=== PATIENT | female | born 1995 | race African-American/Black ===

== ENCOUNTER 2017-01-03 15:03 | Emergency (ER) | payer MEDICAID, OTHER ==
[2017-01-03 15:10] VITALS: BP 144/94
[2017-01-03] MEDS ORDERED: DEXAMETHASONE SOD PHOSPHATE 10 MG/ML VIAL IM ONE (15:19)
[2017-01-03] MEDS ORDERED: KETOROLAC TROMETHAMINE 60 MG/2 ML VIAL IM ONE ×2 (15:19→15:27)
[2017-01-03] MEDS ORDERED: CLINDAMYCIN PHOSPHATE 150 MG/ML VIAL IM ONE (15:20)
[2017-01-03] MEDS ORDERED: DEXAMETHASONE SOD PHOSPHATE 10 MG/ML VIAL ONE (15:27)
--- NOTE | 2017-01-03 16:00 | ERNOTE ---
ENT HPI Presenting Symptoms: other - sore throat Time Seen by Provider: 01/03/17 15:12 Source: patient Exam Limitations: no limitations - Immun/Allergies/Home Medications Immunizations: IMMUNIZATION HX Immunizations Up to Date Yes Allergies/Adverse Reactions: Allergies Allergy/AdvReac Type Severity Reaction Status Date / Time No Known Allergies Allergy Verified 01/03/17 15:10 Home Medications: HOME MEDICATIONS Ibuprofen [Motrin] 600 mg PO Q6H PRN #60 tablet 04/05/14 [Last Taken Unknown] Clarithromycin [Biaxin] 500 mg PO BID #20 tablet 01/03/17 [Last Taken Unknown] - History of Present Illness Narrative: Detailed female presents to the emergency room for sore throat 3 days. States it hurts to swallow. Severity: Present: mild ENT Location: Present: throat Prearrival Treatment: Present: no prearrival treatment Modifying Factors - Improves: Reports: nothing Modifying Factors - Worsens: Reports: coughing Associated Symptoms - ENT: Reports: fever, poor fluid intake, voice change, sore throat. Denies: drooling, nasal congestion/drainage, facial pain/swelling , jaw swelling, ear drainage, headache, foreign body, trauma Review of Systems - Review of Systems Constitutional: Present: See HPI EYE: Present: no symptoms reported ENT: Present: See HPI Respiratory: Present: no symptoms reported. Absent: shortness of breath, cough Cardiology: Present: no symptoms reported Gastrointestinal/Abdominal: Present: no symptoms reported Genitourinary: Present: no symptoms reported Musculoskeletal: Present: no symptoms reported Skin: Present: no symptoms reported Neurological: Present: no symptoms reported Endocrine: Present: no symptoms reported Hematologic/Lymphatic: Present: no symptoms reported Psych: Present: no symptoms reported All Other Systems: All systems neg except as marked - Patient's Past Medical History Patient History - Medical: No pertinent hx Patient History - Cardiac/Respiratory: No pertinent hx Patient History - Cancer: No Hx of Cancer Patient History - Surgical Procedures: No surgical history Patient History - Other: None LMP (females 10-50): 3 weeks - Social History Living Situations: alone Psych History: No pertinent hx Smoking Status: Never smoker Alcohol Use: none - Immunizations Immunizations Up to Date: Yes Physical Exam - Physical Exam Narrative: Patient has 3+ tonsils with exudate and mild erythema noted to the back of her throat. General Appearance: Present: wd/wn, alert, no apparent distress Eye Exam: Normal inspection: bilateral Ears, Nose, Throat: Present: normal except -, pharyngeal erythema, tonsillar exudate, tonsillar swelling Neck: Present: nontender, full range of motion, lymphadenopathy (R), lymphadenopathy (L). Absent: thyromegaly Respiratory: Present: no respiratory distress, normal breath sounds, no accessory muscle use, chest nontender, lungs clear. Absent: respiratory distress, accessory muscle use, crackles, rales, rhonchi, stridor, wheezing Cardiovascular/Chest: Present: regular rate, rhythm, no murmur, normal peripheral pulses Gastrointestinal/Abdominal: Present: normal bowel sounds, nontender, nondistended, soft Back Exam: Present: normal inspection, normal range of motion, no CVA tenderness , no vertebral tenderness Extremity Exam: Present: normal inspection, non-tender, normal range of motion, no edema Neurological Exam: Present: alert, oriented, normal mood/affect, no motor/ sensory deficits Skin Exam: Present: normal color, warm/dry Lymphatic Exam: Present: no adenopathy ED Progress - Results and Orders Patient's Lab Results:: I have reviewed the patient's lab results. Results and Orders: negative strep - Vital Signs Vital Signs: Vital Signs 01/03/17 15:04 Temperature 37.4 C Pulse Rate 104 H Respiratory 18 Rate Blood Pressure 144/94 O2 Sat by Pulse 100 Oximetry - Progress/Reassessment Chief Complaint: Sore Throat Progress:: Improved Plan - Plan Plan: She feels better after medication. Patient educated on drinking cold foods and fluids to help with swelling and to return to the emergency room if swelling returns or she is unable to control pain at home with [id number] pain medication. Departure Clinical Impression: Tonsillitis with exudate - Departure Disposition: Home Follow Up Needed Condition: Stable Instructions: Tonsillitis, [id number] Additional Instructions: Patient continue any previous home medications. Take all antibiotics as prescribed. Return to the emergency rooms if symptoms persist swelling does not go down restart running a fever. Follow-up with her primary care in the next 2-3 days if symptoms do not subside or if needed Referrals: Deloris Glez ARNP [Primary Care Provider] - Prescriptions: Clarithromycin [Biaxin] 500 mg PO BID #20 tablet
== END 2017-01-03 16:03 | disposition home or self-care (01) ==
LOC: ER 15:03
DX: J03.90 Acute tonsillitis, unspecified (principal)

== ENCOUNTER 2019-03-24 06:01 | Inpatient (IN) ==
[2019-03-24] MEDS ORDERED: OXYTOCIN/DEXTROSE 5%-WATER 30 UNITS/500 ML BAG IV ONE ×2 (06:16→10:09)
[2019-03-24] MEDS ORDERED: ONDANSETRON 4 MG TAB.RAPDIS PO PRN (06:16)
[2019-03-24] MEDS ORDERED: RINGER'S SOLUTION,LACTATED 1,000 ML IV ONE (06:16)
[2019-03-24] MEDS ORDERED: NALBUPHINE HCL 10 MG/ML AMPUL IV PRN ×2 (06:16)
[2019-03-24] MEDS ORDERED: RINGER'S SOLUTION,LACTATED 1,000 ML IV PRN (06:16)
[2019-03-24] MEDS ORDERED: LIDOCAINE HCL 50 ML VIAL PERI PRN (06:16)
--- NOTE | 2019-03-24 07:50 | HP ---
Chief Complaint - Chief Complaint Date of Service: 03/24/19 Time of Service: 07:42 Chief Complaint: Labor induction History of Present Illness: 23 year old @ 39w 0d here for elective IOL. She reports some ctx. She denies vb or lof. Fetus is active. Medical History (Updated 03/14/19 @ 10:11 by Joslyn Ramos MD) No pertinent past medical history [place] teeth extracted Surgical History: Surgical History (Updated 02/02/18 @ 11:42 by Gen Sifuentes DO) History of tonsillectomy Onset Date: ~01/2017 Family History: Family History (Updated 10/24/18 @ 08:50 by Trenton Davis RN) Grandmother CHF (congestive heart failure) Paternal Grandfather Diabetes Maternal Type II Grandfather Heart disease Maternal Grandmother Breast cancer Paternal Mother Hypertension Father Alive and well Social History: (Last Reviewed 03/24/19 @ 07:47 by Joslyn Ramos MD) Social History: adopted: No Marital status: Single household members: children, significant other number of children: 2 current occupational status: employed, unemployed Highest education level completed: high school graduate Sexually Active: Yes Service: No Tobacco: Smoking Status: Never smoker Alcohol: alcohol intake: never Substance Use: substance use type: does not use Dietary Habits: caffeine: Yes caffeine comment: 2 daily Type: carbonated beverages Exercise: Physical activity type: none Personal Safety: victim of physical abuse: No victim of emotional abuse: No Review Of Systems (GEN) - Review of Systems Generalized/Overall Review: Present: No Symptoms Reported Misc: All systems neg except as marked Immunizations: IMMUNIZATION HX Immunizations Up to Date Yes Allergies/Adverse Reactions: Allergies Allergy/AdvReac Type Severity Reaction Status Date / Time No Known Allergies Allergy Verified 03/21/19 11:15 Home Medications: HOME MEDICATIONS NK 03/01/19 [Last Taken Unknown] Exam - Exam Vital Signs: Vital Signs - Last Taken Temp 36.3 C 03/24/19 06:23 Pulse 98 03/24/19 06:23 Resp 18 03/24/19 06:23 BP 120/81 03/24/19 06:23 Pulse Ox 98 03/24/19 06:23 Constitutional: Present: Alert, Oriented x3, Cooperative, No distress Respiratory: Present: lungs clear, normal breath sounds Cardiovascular/Chest: Present: regular rate, rhythm, no murmur Abdomen: Present: soft, nontender, nondistended Extremity: Present: non-tender, no calf tenderness Skin Exam: Present: normal color, warm/dry, no cyanosis Appearance: Present: appropriate appearance Eye contact: Present: cooperative Thoughts: Present: normal thought pattern Assessment/Plan - Narrative Narrative: 23 year old @ 39w 0d 1. Elective IOL: Pitocin started, AROM performed 2. GBS negative: prophylaxis not indicated
[2019-03-24] MEDS ORDERED: NALOXONE HCL 1 MG/1 ML SYRG IV PRN (08:31)
[2019-03-24] MEDS ORDERED: ONDANSETRON HCL/PF 2 MG/ML VIAL IV PRN (08:31)
[2019-03-24] MEDS ORDERED: BUPIVACAINE HCL/0.9 % NACL/PF 250 ML EP PRN (08:31)
[2019-03-24] MEDS ORDERED: fentaNYL CITRATE/PF 50 MCG/ML AMPUL IT SCH (08:45)
--- NOTE | 2019-03-24 09:25 | ANES ---
Anesthesia Pre Procedure Eval Vitals/Labs: Last Vital Signs Temp 36.3 C 03/24/19 06:23 Pulse 98 03/24/19 06:23 Resp 18 03/24/19 06:23 BP 120/81 03/24/19 06:23 Pulse Ox 98 03/24/19 06:23 HOME MEDICATIONS NK 03/01/19 [Last Taken Unknown] Allergies/Adverse Reactions: Allergies Allergy/AdvReac Type Severity Reaction Status Date / Time No Known Allergies Allergy Verified 03/21/19 11:15 - Planned Procedure Planned Procedure: ELECTIVE INDUCTION Medication List Reviewed:: Yes Allergies Verified: Yes Medical History (Updated 03/24/19 @ 07:49 by Joslyn Ramos MD) No pertinent past medical history [place] teeth extracted Surgical History (Updated 02/02/18 @ 11:42 by Gen Sifuentes DO) History of tonsillectomy Onset Date: ~01/2017 Family History (Updated 10/24/18 @ 08:50 by Trenton Davis RN) Grandmother CHF (congestive heart failure) Paternal Grandfather Diabetes Maternal Type II Grandfather Heart disease Maternal Grandmother Breast cancer Paternal Mother Hypertension Father Alive and well - Family Anesthesia History Family History:: no untoward family reactions to anesthesia - Airway/Neck/Teeth Within Normal Limits:: Yes Teeth Condition: intact Mallampatti Score: 2 Thyromental (T-M) distance: > 6 cm Mandibulo Hyoid distance: > 3 cm - Respiratory Respiratory Physical: lungs clear Smoking Status: Never smoker Sleep Apnea currently treated: No Sleep Apnea by current assessment: No - Cardiovascular Tolerate Activity: Good Heart Sounds: S1 & S2, Regular - Anesthesia Assessment and Plan ASA Class: PS, II, E Anesthesia Type Plan: Spinal Planned difficult intubation/equipment available: No
--- NOTE | 2019-03-24 09:26 | ANES ---
Post Anesthesia Discharge - Transfer of Care Transfer of Care handoff given to nurse: Yes - Anesthesia Post Op Note Anesthesia Post Op Note: Care transferred to OB RN
--- NOTE | 2019-03-24 09:26 | ANES ---
Post Anesthesia Assessment - Vital Signs Vitals: Last Vital Signs Temp 36.3 C 03/24/19 06:23 Pulse 98 03/24/19 06:23 Resp 18 03/24/19 06:23 BP 120/81 03/24/19 06:23 Pulse Ox 98 03/24/19 06:23 Airway Patency: Normal - Mental Status Level Of Consciousness: Awake - Pain Level Pain Score: 2 - N/V Assessment Nausea/Vomiting Presence: None Dehydration:: No
--- NOTE | 2019-03-24 09:30 | ANES ---
Anesthesia Procedure Note Procedure Note: ANESTHESIA PROCEDURE NOTE Date of procedure: 03/24/2019. Time of procedure: 08 50. Performed by: Reg Alfaro CRNA Heavy Mobile Equipment Operator: None . Preprocedure diagnosis: Active labor. Post procedure diagnosis: Same. Procedure: Labor intrathecal Indications: Labor analgesia. Findings: Patient is placed in a sitting position. Her back was prepped with ChloraPrep. Sterile drape was applied. 3 mL of 1% lidocaine was injected over the L3-4 interspace. A 25-gauge Pencan needle was utilized for dural puncture. 2.5 mg of 0.5% preservative-free Marcaine and 25 mcg of fentanyl was given intrathecally. Spinal needle was removed intact. EBL: Minimal. Fluids: N/A. Specimen: N/A. Post procedure condition: The patient tolerated the procedure well. No complications were noted. Thank you for this consultation Reg Alfaro CRNA
[2019-03-24] MEDS ORDERED: HYDROCORTISONE 30 APPL TUBE TP PRN (10:09)
[2019-03-24] MEDS ORDERED: GLYCERIN/WITCH HAZEL LEAF 40 APPL BOX TP PRN (10:09)
[2019-03-24] MEDS ORDERED: BISACODYL 10 MG SUPP.RECT RC PRN (10:09)
[2019-03-24] MEDS ORDERED: diphenhydrAMINE HCL 25 MG CAPSULE PO PRN (10:09)
[2019-03-24] MEDS ORDERED: BENZOCAINE/MENTHOL 81 SPRAY CAN TP PRN (10:09)
[2019-03-24] MEDS ORDERED: SENNOSIDES 8.6 MG TABLET PO PRN (10:09)
--- NOTE | 2019-03-24 10:10 | OR ---
Operative Report - Dictated Report Narrative: Date of delivery: 03/24/2019 Time of delivery: 934 Gender: male weight: 3351 grams APGARS: 8/9 Procedure: Description of the procedure: The patient is a 23 year old at 39w 0d who presented today for an elective IOL. She was started on pitocin and AROM was accomplished. She progressed to complete dilation. She delivered a viable male infant in SIDRA presentation. The cord was around the 's right leg and this was reduced. The cord was clamped and cut. The placenta was removed by expression and appeared intact. There were bilateral labial lacerations which were not repaired because they were hemostatic. Sponge and needle counts were correct. EBL: 100 mL Complications: none History for MU Definition: * The number of deliveries resulting in a live the patient experienced prior to current hospitalization * The previous delivery of live twins or any live multiple gestation is considered one live event. *If primagravida or nulliparous is documented select zero for the number of pr evious live births. Live Events: 2
[2019-03-24] MEDS: oxyCODONE HCL/ACETAMINOPHEN 1 TAB TABLET PO PRN ×2 (17:16→22:15)
[2019-03-24] MEDS: IBUPROFEN 800 MG TABLET PO PRN ×2 (17:16→23:21)
[2019-03-24] MEDS: DOCUSATE SODIUM 100 MG CAPSULE PO SCH (22:15)
[2019-03-25] MEDS: oxyCODONE HCL/ACETAMINOPHEN 1 TAB TABLET PO PRN ×4 (02:48→22:40)
[2019-03-25] MEDS: IBUPROFEN 800 MG TABLET PO PRN ×3 (07:55→22:40)
[2019-03-25] MEDS: DOCUSATE SODIUM 100 MG CAPSULE PO SCH ×3 (07:56→21:22)
--- NOTE | 2019-03-25 08:41 | PN ---
Subjective - Date and Time Seen Date: 03/25/19 Time: 08:40 Subjective Narrative: Patient without complaints Objective Objective Narrative: See vital signs - Review of Systems Generalized/Overall Review: Reports: No Symptoms Reported Misc: All systems neg except as marked - Vitals Vitals: Last Vital Signs Temp 36.6 C 03/24/19 13:46 Pulse 101 H 03/24/19 21:00 Resp 16 03/24/19 21:00 BP 115/69 03/24/19 21:00 Pulse Ox 98 03/24/19 21:00 - Exam Constitutional: Present: Alert, Oriented x3, Cooperative, No distress Abdomen: Present: soft, nontender, nondistended - fundus is firm Extremity: Present: non-tender, no calf tenderness Skin Exam: Present: normal color, warm/dry, no cyanosis Appearance: Present: appropriate appearance Eye contact: Present: cooperative Thoughts: Present: normal thought pattern Assessment/Plan Plan Narrative: PPD 1 s/p Doing well Discharge tomorrow
[2019-03-26] MEDS: IBUPROFEN 800 MG TABLET PO PRN (09:22)
[2019-03-26] MEDS: oxyCODONE HCL/ACETAMINOPHEN 1 TAB TABLET PO PRN (09:22)
[2019-03-26] MEDS: DOCUSATE SODIUM 100 MG CAPSULE PO SCH (09:28)
[2019-03-26 10:18] VITALS: BP 128/77
--- NOTE | 2019-03-26 11:11 | PN ---
Subjective - Date and Time Seen Date: 03/26/19 Time: 11:09 Subjective Narrative: Patient without complaints Objective Objective Narrative: See vital signs - Review of Systems Generalized/Overall Review: Reports: No Symptoms Reported Misc: All systems neg except as marked - Vitals Vitals: Last Vital Signs Temp 37.0 C 03/26/19 10:09 Pulse 111 H 03/26/19 10:09 Resp 20 03/26/19 10:09 BP 128/77 03/26/19 10:09 Pulse Ox 99 03/26/19 10:09 - Exam Constitutional: Present: Alert, Oriented x3, Cooperative, No distress Respiratory: Present: lungs clear, normal breath sounds Cardiovascular/Chest: Present: regular rate, rhythm, no murmur Abdomen: Present: soft, nontender, nondistended Extremity: Present: non-tender, no calf tenderness Skin Exam: Present: normal color, warm/dry, no cyanosis Appearance: Present: appropriate appearance Eye contact: Present: cooperative Thoughts: Present: normal thought pattern Assessment/Plan Plan Narrative: PPD 2 s/p Doing well Discharge home Follow-up in 4 weeks
== END 2019-03-26 12:30 | disposition home or self-care (01) | DRG 807 ==
LOC: OB 06:01 → MS 13:51
PROVIDERS: ADMIT Obstetrics & Gynecology; ATTEND Obstetrics & Gynecology
CPT/HCPCS: 59025; 86850